=== PATIENT | female | born 1990 | race Caucasian/White ===

== ENCOUNTER 2019-02-02 11:58 | Emergency (ER) | payer OTHER ==
[~2019-02-02] VITALS: Ht 170.2 cm; Wt 62.0 kg
[2019-02-02 15:10] VITALS: BP 115/82
== END 2019-02-02 15:13 | disposition home or self-care (01) ==
LOC: ER 11:58
DX: R22.1 Localized swelling, mass and lump, neck (principal)
CPT/HCPCS: 99282